=== PATIENT | female | born 1960 | race Caucasian/White ===

== ENCOUNTER 2016-12-17 11:04 | Outpatient (CLI) | payer OTHER ==
--- NOTE | 2016-12-18 10:52 | Mammography Report ---
DIGITAL BILATERAL SCREENING MAMMOGRAM: 12/17/2016 CLINICAL HISTORY: A 56-year-old female in for routine screening mammogram. Patient has no family hi story of breast cancer. Patient has had prior surgery. Patient has breast implants. COMPARISON: 02/18/2011, 02/11/2012, 12/07/2013, 10/11/2015 TECHNIQUE: Craniocaudad and oblique lateral views of each breast were obtained with [facility] digital mammography. Bilateral craniocaudad and oblique lateral Aster views were obtained to com pliment the present study. FINDINGS: Bilateral subglandular silicone breast prostheses are seen. Breasts are primarily composed of fat. The subglandular silicone breast prostheses demonstrate free silicone along the margins of the prosth esis. In addition, there is now an irregular density noted adjacent to the anterolateral aspect of t he left breast prosthesis measuring 4.0 x 3.2 x 2.8 cm. There are some small opaque droplets in and about this area and an extension of the density posterolaterally silhouetting the prosthesis. Primar y consideration for this finding is a silicone granuloma related to free silicone in the breast. Sec ondary consideration would be malignancy. This finding was not evident on prior mammograms from 09/25. There are some small calcifications in this area of potential silicone granuloma. These hav e been present on preceding exam from 10/11/2015, and are unchanged. In addition to the above finding is once again noted an oval-shaped density in the 6 o'clock position of the left breast measuring 0.6 x 1.5 x 1.0 cm. This asymmetrical density appears slightly larger on today's exam than preceding exam. It lies 4-5 cm posterior-inferior to the nipple. Recommend thi s area also undergo ultrasound evaluation. Right breast appears radiographically benign without significant clusters of calcification or masses. IMPRESSION: 1. BILATERAL SUBGLANDULAR SILICONE BREAST PROSTHESES. THESE PROSTHESES ARE ENCAPSULATED AND HAVE FR EE SILICONE ALONG THEIR OUTER SURFACES. 2. INTERVAL APPEARANCE OF PROMINENT DENSITY WITH HIGHLY IRREGULAR MARGINS MEASURING 4.0 X 2.8 X 3.2 CM SILHOUETTING THE ANTEROLATERAL ASPECT OF THE LEFT BREAST PROSTHESIS. THIS LIES AT THE 2 O'CLOCK P OSITION OF THE LEFT BREAST AND ALSO HAS AN EXTENSION POSTERIORLY. FINDING MOST LIKELY REPRESENTS A S ILICONE GRANULOMA IN RESPONSE TO FREE SILICONE WITHIN THE BREAST. SECONDARY CONSIDERATION IS A MALIG BEN. RECOMMEND LEFT BREAST ULTRASOUND FOR FURTHER EVALUATION. 3. A 1.5 X 0.6 CM ASYMMETRICAL DENSITY IS DETECTED IN THE 6 O'CLOCK POSITION OF THE ANTERIOR HALF OF THE LEFT BREAST. THIS FINDING APPEARS SLIGHTLY INCREASED IN SIZE COMPARED TO PRECEDING EXAM. RE COMMEND THIS FINDING UNDERGO LEFT BREAST ULTRASOUND EVALUATION. BIRADS 0 - INCOMPLETE. NEEDS ADDITIONAL IMAGING EVALUATION. STANDARD QUALIFYING STATEMENTS 1. This examination was reviewed with the aid of Computer-Aided Detection (CAD). 2. A negative or benign imaging report should not delay biopsy if clinically suspicious findings are present. Consider surgical consultation if warranted. More than 5% of cancers are not identified by i maging. 3. Dense breasts may obscure an underlying neoplasm. JOB #: [id number] EXT JOB #:
== END 2016-12-17 11:05 | disposition home or self-care (01) ==
LOC: DI.S 11:04
PROVIDERS: ATTEND Physician Assistant Medical
DX: Z12.31 Encounter for screening mammogram for malignant neoplasm of breast (principal); T85.898A Other specified complication of other internal prosthetic devices, implants and grafts, initial encounter; R92.8 Other abnormal and inconclusive findings on diagnostic imaging of breast
CPT/HCPCS: 77067

== ENCOUNTER 2017-01-08 07:43 | Outpatient (CLI) | payer OTHER ==
--- NOTE | 2017-01-08 16:16 | Ultrasound Report ---
LEFT BREAST ULTRASOUND: 01/08/2017 CLINICAL INDICATION: Nodule and asymmetry. COMPARISON: Screening mammogram 12/17/2016, 10/11/2015, 12/07/2013, 05/13/2012, 02/18/2011, 8. TECHNIQUE: Real-time scanning was performed with car sales representative static images obtained. FINDINGS: Ultrasound of the left inferior and lateral breast was performed. At the 6 o'clock position, approximately 5 cm from the nipple, there is an ovoid circumscribed 10 x 6 x 4 mm nodule. This demonstrates no associated vascularity, and some posterior acoustic enhancement. 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 Imaging of the outer left breast demonstrates extravasated silicone, with typical "snowstorm" appeara nce. No associated vascularity is seen. IMPRESSION: BENIGN FINDINGS. RECOMMENDATION: ROUTINE ANNUAL SCREENING UNLESS OTHERWISE CLINICALLY INDICATED. ADDITIONALLY, A PLAST IC SURGERY CONSULTATION FOR SILICONE EXTRAVASATION FROM THE LEFT IMPLANT. BIRADS CATEGORY 2-BENIGN FINDINGS. Results and recommendations discussed with the patient at the time of the examination. JOB #: [id number] EXT JOB #:[id number]
== END 2017-01-08 07:44 | disposition home or self-care (01) ==
LOC: DI 07:43
PROVIDERS: ATTEND Physician Assistant Medical
DX: R92.2 Inconclusive mammogram (principal)
CPT/HCPCS: 76642

== ENCOUNTER 2017-03-11 09:31 | Outpatient (CLI) | payer OTHER ==
--- NOTE | 2017-03-11 11:58 | MRI Report ---
EXAM: LEFT ANKLE/HINDFOOT MRI WITHOUT CONTRAST EXAM DATE: 03/11/2017 10:30 AM. CLINICAL HISTORY: CHRONIC L FOOT PAIN SINCE SEP 13, PLANTAR CUBOID. COMPARISON: None. TECHNIQUE: Multiplanar, multisequence T1-weighted and fluid-sensitive sequences of the ankle/hindfoot without contrast. Other: Marker over area of pain. FINDINGS: Bones: No fractures or subluxations. Mild marrow edema at the base of the third and fourth metatarsal s. No bone lesions. Articular Cartilage: Unremarkable. Ligaments: The anterior talofibular ligament is nonvisualized consistent with chronic complete tear. The anterior and posterior tibiofibular, anterior talofibular, and calcaneofibular ligaments are int act. The deep and superficial deltoid and spring ligaments are intact. Anterior Tendons: The tibialis anterior, extensor hallucis longus, and extensor digitorum longus tend ons are unremarkable. Medial Tendons: The tibialis posterior, flexor digitorum longus, and flexor hallucis longus tendons a re unremarkable. Lateral Tendons: The peroneus brevis and longus are unremarkable. Achilles Tendon: The Achilles tendon is unremarkable. Musculature: No edema or fatty atrophy. Other: No effusions. The contents of the sinus tarsi and tarsal tunnel are unremarkable. No plantar f asciitis. The subcutaneous tissues are unremarkable. IMPRESSION: 1. The anterior talofibular ligament is nonvisualized consistent with chronic complete tear. 2. Mild marrow edema at the base of the third and fourth metatarsals consistent with contusion. No fr acture. 3. No other MRI abnormalities in the ankle/hindfoot. No abnormality is demonstrated in the area of pa in. The plantar aponeurosis and cuboid, specifically, are intact. [facility] MUSCULOSKELETAL RADIOLOGY SECTION Referring Provider Line: [phone] SITE ID: [id number]
== END 2017-03-11 09:32 | disposition home or self-care (01) ==
LOC: DI 09:31
PROVIDERS: ATTEND Podiatrist
DX: M79.672 Pain in left foot (principal)

== ENCOUNTER 2020-11-23 14:19 | Outpatient (CLI) | payer MEDICAID, OTHER ==
--- NOTE | 2020-11-23 17:51 | XRAY Report ---
PROCEDURE: Knee 3 View LT INDICATIONS: LEFT KNEE PAIN TECHNIQUE: 3 views of the left knee(s) were acquired. COMPARISON: None. FINDINGS: Bones: No acute fractures or dislocations. Mild tricompartmental degenerative changes of the left k nee. Small marginal osteophytes are seen. No suspicious bony lesions. Soft tissues: Small suprapatellar joint effusion. No suspicious soft tissue calcifications. There a re vascular calcifications. IMPRESSION: Left knee without acute fracture or dislocation. Mild tricompartmental degenerative changes of the left knee with small suprapatellar joint effusion. Reviewed by: Thien Pereira MD on 11/23/2020 5:50 PM PDT Approved by: Thien Pereira MD on 11/23/2020 5:50 PM PDT Station ID: [id number]
== END 2020-11-23 23:59 | disposition home or self-care (01) ==
LOC: DI.S 14:19
PROVIDERS: ATTEND Physician Assistant Medical
DX: M25.562 Pain in left knee (principal); M17.12 Unilateral primary osteoarthritis, left knee; M25.462 Effusion, left knee

== ENCOUNTER 2021-02-20 16:15 | Outpatient (CLI) | payer MEDICAID ==
[2021-02-20 19:31] LABS: MICROALBUMIN,URINE < 0.2 mg/dL (0-300.0)
== END 2021-02-20 23:59 | disposition home or self-care (01) ==
LOC: LAB.R 16:15
PROVIDERS: ATTEND Physician Assistant Medical
DX: E11.9 Type 2 diabetes mellitus without complications (principal)
CPT/HCPCS: 82043; 82570

== ENCOUNTER 2021-02-21 14:56 | Outpatient (CLI) | payer MEDICAID ==
--- NOTE | 2021-02-21 16:05 | Ultrasound Report ---
PROCEDURE: Duplex Ext Veins Left INDICATIONS: LEFT LEG EDEMA TECHNIQUE: Real-time imaging, as well as color and pulse Doppler interrogation, were performed of the lower extr emity deep veins from the inguinal ligament to the popliteal fossa. COMPARISON: None. FINDINGS: The deep veins are normally compressible, and free of intraluminal thrombus. Color and pu lse Doppler demonstrate normal phasic intraluminal flow. There is normal augmentation response to di stal compression maneuver. IMPRESSION: No evidence of deep vein thrombosis involving the left lower extremity. Reviewed by: Quiana Lama MD, PhD on 02/21/2021 4:04 PM PDT Approved by: Quiana Lama MD, PhD on 02/21/2021 4:04 PM PDT Station ID: [id number]
== END 2021-02-21 14:57 | disposition home or self-care (01) ==
LOC: DI 14:56
PROVIDERS: ATTEND Physician Assistant Medical
DX: R60.0 Localized edema (principal)

== ENCOUNTER 2022-12-26 07:17 | Outpatient (CLI) | payer MEDICAID ==
--- NOTE | 2022-12-27 09:48 | Mammography Report ---
BILATERAL DIGITAL SCREENING MAMMOGRAM 3D/2D WITH AUGMENTATION: 12/26/2022 CLINICAL: Routine screening. Comparison: 12/17/2016, 10/11/2015, and 12/07/2013 Both breasts are almost entirely fatty (category a/<25% glandular tissue). Bilateral breast implants are present. There is a benign focal asymmetry in the left breast. No significant masses, calcifications, or other findings are seen in either breast. IMPRESSION: BENIGN There is no mammographic evidence of malignancy. A 1 year screening mammogram is recommended. Based on the Tyrer Cuzick model (a risk assessment model) the patients lifetime risk is 5.1% and her 10 year risk is 2.1%. According to the ACR, ACS, and NCCN guidelines, an annual breast MRI exam nicole g with mammogram is recommended if the patients lifetime risk is 20% or greater. This exam was interpreted at Station ID: [id number]. NOTE: For mammograms, a report in lay terms will be sent to the patient. Approximately 15% of breast malignancies will not be visualized mammographically. In the management of a palpable breast mass, a negative mammogram must not discourage biopsy of a clinically suspicious lesion. Electronically Signed By: Thien Pereira M.D. aty/:12/26/2022 09:57:39 letter sent: No_Letter ACR BI-RADS Category 2: Benign Finding(s) 3342F PARENCHYMAL PATTERN: (F) - The breast(s) demonstrate(s) diffuse fatty replacement. BI-RADS CATEGORY: (2) - 2 Mammogram [id number] 1 year screening LATERALITY: (B)
== END 2022-12-26 07:18 | disposition home or self-care (01) ==
LOC: DI.S 07:17
DX: Z12.31 Encounter for screening mammogram for malignant neoplasm of breast (principal)

== ENCOUNTER 2023-12-10 07:05 | Outpatient (CLI) | payer OTHER ==
[2023-12-10 16:01] LABS: ALBUMIN 4.2 g/dL (3.2-5.5); ALBUMIN/GLOBULIN RATIO 1.5 (1.0-2.2); ALKALINE PHOSPHATASE 43 IU/L (42-121); ALT ALANINE AMINOTRANSFERASE 17 IU/L (10-60); AST ASPARTATE AMINOTRANSFERASE 20 IU/L (10-42); BILIRUBIN,TOTAL 0.6 mg/dL (0.2-1.0); BUN - BLOOD UREA NITROGEN 15 mg/dL (6-20); CALCIUM 9.5 mg/dL (8.5-10.3); CARBON DIOXIDE - CO2 26 mmol/L (21-32); CHLORIDE 107 mmol/L (101-111); CHOL/HDL RATIO 2.3 (<4.4); CHOLESTEROL 151 mg/dL; CREATININE 0.8 mg/dL (0.6-1.3); GFR - MDRD 73 (>89); GLUCOSE 127 mg/dL (74-104); HDL CHOLESTEROL 65 mg/dL; LDL CHOLESTEROL,CALCULATED 70 mg/dL; LDL/HDL RATIO 1.1 (<4.4); SODIUM 138 mmol/L (135-145); TRIGLYCERIDES 81 mg/dL (48-352); VLDL CHOLESTEROL 16 mg/dL
[2023-12-10 20:53] LABS: ESTIMATED AVERAGE GLUCOSE 148 mg/dL (70-100); HEMOGLOBIN A1c% 6.8 % (4.27-6.07)
== END 2023-12-10 07:06 | disposition home or self-care (01) ==
LOC: LAB.S 07:05
PROVIDERS: ATTEND Physician Assistant Medical
DX: E11.9 Type 2 diabetes mellitus without complications (principal); E78.5 Hyperlipidemia, unspecified
CPT/HCPCS: 36415; 80053; 80061; 83036; 83721

== ENCOUNTER 2024-01-06 07:47 | Outpatient (CLI) | payer OTHER ==
--- NOTE | 2024-01-07 09:25 | Mammography Report ---
BILATERAL DIGITAL SCREENING MAMMOGRAM 3D/2D WITH AUGMENTATION: 01/06/2024 CLINICAL: Routine screening. Comparison is made to exams dated: 12/26/2022 mammogram, 12/17/2016 mammogram, 10/11/2015 mammogram, and 12/07/2013 mammogram - [facility]. There are scattered areas of fibroglandular density in both breasts (category b / 25%-50% glandular t issue). Bilateral breast implants are present. There is a benign focal asymmetry in the left breast. There also are benign calcifications in both breasts. No significant masses, calcifications, or other findings are seen in either breast. There has been no significant interval change. IMPRESSION: BENIGN There is no mammographic evidence of malignancy. A 1 year screening mammogram is recommended. Based on the Tyrer Cuzick model (a risk assessment model) the patient's lifetime risk is 7.4% and her 10 year risk is 3.2%. According to the ACR, ACS, and NCCN guidelines, an annual breast MRI exam nicole g with mammogram is recommended if the patient's lifetime risk is 20% or greater. This exam was interpreted at Station ID: [id number]. NOTE: For mammograms, a report in lay terms will be sent to the patient. Approximately 15% of breast malignancies will not be visualized mammographically. In the management of a palpable breast mass, a negative mammogram must not discourage biopsy of a clinically suspicious lesion. Electronically Signed By: Thien love/alis:01/06/2024 12:18:29 letter sent: No_Letter ACR BI-RADS Category 2: Benign Finding(s) 3342F PARENCHYMAL PATTERN: (A) - The breast(s) demonstrate(s) scattered fibroglandular densities. BI-RADS CATEGORY: (2) - 2 RECOMMENDATION: (ANNUAL) - Recommend routine annual screening mammography. [id number] 1 year screening LATERALITY: (B)
== END 2024-01-06 07:48 | disposition home or self-care (01) ==
LOC: DI.S 07:47
DX: Z12.31 Encounter for screening mammogram for malignant neoplasm of breast (principal); R92.323 Mammographic fibroglandular density, bilateral breasts